=== PATIENT | female | born 1960 | race Caucasian/White ===

== ENCOUNTER 2018-03-01 08:24 | Emergency (ER) | payer BC ==
[2018-03-01] MEDS ORDERED: Nitroglycerin 0.4 MG TAB (25 Tab Bottle) ONE (08:48)
[2018-03-01] MEDS ORDERED: Morphine 4 MG/ML Carpuject ONE (08:49)
[2018-03-01] MEDS ORDERED: Ondansetron HCl/PF 4 MG/2 ML Vial ONE (08:56)
[2018-03-01 09:07] LABS: Eosinophils 5 % (0-10); Hemoglobin 14.4 g/dL (12.0-16.0); Lymphocytes 66 % (21-51); MDiff Complete? YES; Mean Corpuscular HGB CONC 34.7 g/dL (32.0-36.0); Mean Corpuscular Hemoglobin 30.8 pg (27.0-31.0); Mean Corpuscular Volume 88.8 fl (81.0-99.0); Mean Platelet Volume 6.9 fL (7.4-10.4); Monocytes 3 % (0-10); Neutrophil 23 % (42-75); Platelet Count 211 thou/uL (130-400); RBC Distribution Width 12.5 % (11.5-14.5); Red Blood Cell (RBC) Count 4.68 mill/uL (4.20-5.40); White Blood Cell (WBC) Count 6.2 thou/uL (4.8-10.8)
[2018-03-01 09:08] LABS: ALT (SGPT) 25 U/L (8-55); AST (SGOT) 24 U/L (5-34); Albumin 4.3 g/dL (3.5-5.0); Alkaline Phosphatase 63 U/L (40-150); Anion Gap 15 mmol/L (10-20); BUN (Urea Nitrogen) 12 mg/dL (9.8-20.1); Bilirubin, Total 0.7 mg/dL (0.2-1.2); CKMB 1.2 ng/mL (0-6.6); Calc. Creatinine Clearance 0 mL/min (70-130); Calcium 9.9 mg/dL (7.8-10.44); Carbon Dioxide 25 mmol/L (22-29); Chloride 107 mmol/L (98-107); Estimated GFR-MDRD 75; Globulin 2.7 g/dL (2.4-3.5); Glucose 97 mg/dL (70-105); Lipase 60 U/L (8-78); Potassium 4.5 mmol/L (3.5-5.1); Sodium 142 mmol/L (136-145); Troponin I 0.012 ng/mL (< 0.028)
[2018-03-01] MEDS ORDERED: Acetaminophen 500 MG TAB ONE (09:15)
[2018-03-01] MEDS ORDERED: Enoxaparin Sodium 100 MG/ML SYRINGE ONE (09:15)
[2018-03-01] MEDS ORDERED: Nitroglycerin 50 MG/250 ML BOT 250 ML ONE (09:16)
--- NOTE | 2018-03-01 11:13 | RAD ---
PORTABLE CHEST: Date: 03/01/18 An AP portable film at 0821 hours shows a normal sized heart and clear lungs. No infiltrate or effusi on seen. No vascular congestion or edema. Mediastinum appears normal. IMPRESSION: No acute thoracic finding. POS: HOME
== END 2018-03-01 10:45 | disposition short-term general hospital (02) ==
LOC: BURERS 08:24
DX: I20.0 Unstable angina (principal); E03.9 Hypothyroidism, unspecified; I10 Essential (primary) hypertension; F41.9 Anxiety disorder, unspecified; Z79.899 Other long term (current) drug therapy
CPT/HCPCS: 71045; 80053; 82553; 83690; 84484; 85025; 85379; 93005; 94760; 96365; 96372; 96375; J1650; J2270; J2405

== ENCOUNTER 2019-10-29 09:05 | Outpatient (CLI) | payer BC ==
--- NOTE | 2019-11-02 07:41 | ULT ---
ABDOMINAL ULTRASOUND: 10/29/19 Ultrasonography of the abdomen shows a normal appearing liver, spleen, pancreas, aorta, inferior vena cava, and kidneys. All major organs were normal in appearance. No stones were seen in the gallbladde r. There is no wall thickening. The common bile duct was a normal 4 mm wide. The right kidney was 9.6 cm long and the left was 10.6 cm. IMPRESSION: Unremarkable abdominal ultrasound. POS: HOME
== END 2019-10-29 09:06 | disposition home or self-care (01) ==
LOC: BURULT 09:05
PROVIDERS: ATTEND Physician Assistant
DX: R10.13 Epigastric pain (principal)
CPT/HCPCS: 93975

== ENCOUNTER 2021-10-10 13:46 | Outpatient (CLI) | payer BC | END 2021-10-10 13:47 | disposition home or self-care (01) | LOC: BURRAD 13:46 | PROVIDERS: ATTEND Family Medicine | DX: M25.551 Pain in right hip (principal) ==